=== PATIENT | male | born 1970 | race Hispanic/Latino ===

== ENCOUNTER 2021-08-23 21:28 | Emergency (ER) | payer SELFPAY ==
[~2021-08-23] VITALS: Ht 180.3 cm; Wt 106.6 kg
[2021-08-23] MEDS ORDERED: AZITHROMYCIN250 MG PO (21:57)
[2021-08-23] MEDS ORDERED: IBUPROFEN IB200 MG PO (21:57)
[2021-08-23] MEDS ORDERED: ACETAMINOPHEN500 MG PO (21:57)
[2021-08-23] MEDS ORDERED: IBUPROFEN 600 MG TAB ONE (21:58)
== END 2021-08-23 22:40 | disposition home or self-care (01) ==
LOC: FSED 21:47
DX: R50.9 Fever, unspecified (principal); B34.9 Viral infection, unspecified; R05.9 Cough, unspecified; Z20.822 Contact with and (suspected) exposure to COVID-19; Z71.89 Other specified counseling
CPT/HCPCS: 87400; 99282